=== PATIENT | female | born 1945 | race Caucasian/White ===

== ENCOUNTER → 2016-10-07 | Outpatient (CLI) | payer BC, OTHER ==
[~2016-10-07] MED LIST: CPR500 PO; METR-163 PO; MULT-506 PO; OXYC-57 PO; PRLSR20 PO
--- NOTE | 2016-10-15 05:54 | CODING QUERY MEDICAL NECESSITY ---
SUPPORTING DIAGNOSIS NEEDED Dr. Rodarte, A supporting diagnosis is required for the test/procedure performed on this patient in order for us to be reimbursed by the patient's insurance. Please provide a supporting diagnosis for the following test/procedure listed below next to the test name along with your signature. *If there is no additional diagnosis for this patient that would support the following test/procedure please document that below next to the test/procedure. Test(s)/Procedure(s) that require a supporting diagnosis: * ([id number]) DXA BONE DENSITY, AXIAL DIAGNOSIS: DATE OF SERVICE: 10/07/16 Provider Signature: Date: Thank you Chapincito Betancur [facility] Information Management Once completed, please kindly fax back to [phone] For questions please call [phone]
== END ==
LOC: C.MAMM 10:40
PROVIDERS: ATTEND Student in an Organized Health Care Education/Training Program
DX: Z13.820 Encounter for screening for osteoporosis (principal)

== ENCOUNTER → 2016-10-14 | Outpatient (CLI) | payer BC, OTHER ==
--- NOTE | 2016-10-14 14:30 | MAMMOGRAPHY REPORT ---
BILATERAL DIGITAL SCREENING MAMMOGRAM WITH CAD: 10/14/2016 CLINICAL HISTORY: Routine screening. Patient has no complaints. TECHNIQUE: Bilateral CC and MLO views were obtained. Current study was also evaluated with a Compute r Aided Detection (CAD) system. COMPARISON: Comparison is made to exams dated: 12/30/2014 mammogram, 12/29/2013 mammogram, 12/28/2012 m ammogram, 12/26/2011 mammogram, 12/25/2010 mammogram, and 12/22/2009 mammogram - [facility] enter. BREAST COMPOSITION: The tissue of both breasts is almost entirely fatty. FINDINGS: No suspicious mass, architectural distortion or cluster of suspicious microcalcifications is seen. IMPRESSION: ACR BI-RADS CATEGORY 1: NEGATIVE There is no mammographic evidence of malignancy. A 1 year screening mammogram is recommended. The pa tient will receive written notification of the results. Approximately 10% of breast cancers are not detected with mammography. A negative mammographic report should not delay biopsy if a clinically suggestive mass is present. Beatris Thompson M.D. ay/:10/14/2016 12:25:16 Night Order Selector: Thalia Malhotra RT(R)(M), [facility] letter sent: Normal 1/2 BI-RADS Code: ACR BI-RADS Category 1: Negative
== END | disposition home or self-care (01) ==
LOC: C.MAMM 09:52
PROVIDERS: ATTEND Family Medicine
DX: Z12.31 Encounter for screening mammogram for malignant neoplasm of breast (principal)

== ENCOUNTER → 2017-03-14 | Outpatient (CLI) | payer BC, OTHER ==
--- NOTE | 2017-03-14 11:12 | DIAGNOSTIC IMAGING REPORT ---
THORACIC SPINE 3 VIEWS ROUTINE CLINICAL HISTORY: Mid back pain COMPARISON STUDY: No previous studies for comparison. FINDINGS: The paraspinal line is not displaced. There are mild multilevel degenerative changes with prominent midthoracic anterior osteophytes. No destructive lesions are visualized on conventional radiographic imaging. IMPRESSION: Mild degenerative change. No fractures identified. Electronically signed by: Tonny Villasenor M.D. 03/14/2017 11:11 AM Dictated Date/Time: 03/14/2017 11:10 AM
--- NOTE | 2017-03-14 11:16 | DIAGNOSTIC IMAGING REPORT ---
PA CHEST WITH RIGHT-SIDED RIB SERIES CLINICAL HISTORY: Right-sided chest wall pain. FINDINGS: A PA chest radiograph with 4 additional views may right-sided rib series is compared to study dated 01/30/2008. The cardiomediastinal silhouette is unremarkable. There is atherosclerotic calcification of the thoracic aorta. The lungs and pleural spaces are clear. No pneumothorax is seen. The skeletal structures are osteopenic. There is no radiographic evidence of acute/distracted right-sided rib fracture on the rib series as clinically queried. The remainder of the bony thorax is grossly intact. Cholecystectomy clips are seen in the right upper quadrant. IMPRESSION: 1. No active disease in the chest. 2. There is no radiographic evidence of right-sided rib fracture as clinically queried. Electronically signed by: Felipe Perez M.D. 03/14/2017 11:15 AM Dictated Date/Time: 03/14/2017 11:11 AM
== END | disposition home or self-care (01) ==
LOC: C.RAD 10:32
PROVIDERS: ATTEND Family Medicine
DX: R07.81 Pleurodynia (principal); M89.8X8 Other specified disorders of bone, other site